=== PATIENT | female | born 1980 | race Two or more races ===

== ENCOUNTER 2019-07-09 13:39 | Outpatient (CLI) | payer OTHER | END 2019-07-09 15:00 | disposition home or self-care (01) | LOC: LAB 13:39 | DX: R19.00 Intra-abdominal and pelvic swelling, mass and lump, unspecified site (principal) ==

== ENCOUNTER 2019-07-10 07:21 | Outpatient (CLI) | payer OTHER | END 2019-07-10 08:30 | disposition home or self-care (01) | LOC: RAD 07:21 | DX: R19.00 Intra-abdominal and pelvic swelling, mass and lump, unspecified site (principal); R57.1 Hypovolemic shock ==

== ENCOUNTER 2022-01-02 08:15 | Inpatient (IN) | payer OTHER ==
[~2022-01-02] VITALS: Ht 162.6 cm; Wt 51.3 kg
== END 2022-01-08 17:44 | disposition home or self-care (01) | DRG 330 ==
LOC: SURH 01-05 07:00 → O/R 01-05 08:28 → OB/GYN 01-05 19:01
PROVIDERS: Obstetrics & Gynecology Gynecologic Oncology; ADMIT Colon & Rectal Surgery; ATTEND Colon & Rectal Surgery
PROC: 4A1BXSH Monitoring of Gastrointestinal Vascular Perfusion using Indocyanine Green Dye, External Approach (ICD-10-PCS; 2022-01-05)
PROC: 0UT94ZZ Resection of Uterus, Percutaneous Endoscopic Approach (ICD-10-PCS; 2022-01-05)
PROC: 0UT64ZZ Resection of Left Fallopian Tube, Percutaneous Endoscopic Approach (ICD-10-PCS; 2022-01-05)
PROC: 0UT14ZZ Resection of Left Ovary, Percutaneous Endoscopic Approach (ICD-10-PCS; 2022-01-05)
PROC: 0TN74ZZ Release Left Ureter, Percutaneous Endoscopic Approach (ICD-10-PCS; 2022-01-05)
PROC: 0TN64ZZ Release Right Ureter, Percutaneous Endoscopic Approach (ICD-10-PCS; 2022-01-05)
PROC: 0DTE4ZZ Resection of Large Intestine, Percutaneous Endoscopic Approach (ICD-10-PCS; principal; 2022-01-05 07:00)
PROC: 0DJD8ZZ Inspection of Lower Intestinal Tract, Via Natural or Artificial Opening Endoscopic (ICD-10-PCS; 2022-01-05 07:00)
PROC: 30233N1 Transfusion of Nonautologous Red Blood Cells into Peripheral Vein, Percutaneous Approach (ICD-10-PCS; 2022-01-06)
DX: K56.51 Intestinal adhesions [bands], with partial obstruction (principal); D62 Acute posthemorrhagic anemia; D25.1 Intramural leiomyoma of uterus; N80.0 Endometriosis of uterus; N72 Inflammatory disease of cervix uteri; N70.11 Chronic salpingitis; Z20.822 Contact with and (suspected) exposure to COVID-19; N80.5 Endometriosis of intestine; N80.1 Endometriosis of ovary

== ENCOUNTER 2022-01-04 06:22 | Day surgery (SDC) | payer OTHER | END 2022-01-04 10:50 | disposition home or self-care (01) | LOC: AMB-ENDOS 06:22 → CIR.AMB 08:30 → AMB-ENDOS 10:50 | PROVIDERS: ATTEND Colon & Rectal Surgery | DX: N80.5 Endometriosis of intestine (principal); I10 Essential (primary) hypertension ==

== ENCOUNTER 2023-01-10 09:13 | Day surgery (SDC) | payer OTHER | END 2023-01-10 13:55 | disposition home or self-care (01) | LOC: AMB-ENDOS 09:13 → CIR.AMB 13:15 → AMB-ENDOS 13:15 | PROVIDERS: ATTEND Colon & Rectal Surgery | DX: K63.89 Other specified diseases of intestine (principal); K64.8 Other hemorrhoids; N80.50 Endometriosis of intestine, unspecified; D64.9 Anemia, unspecified ==